=== PATIENT | female | born 1990 | race Caucasian/White ===

== ENCOUNTER 2018-08-21 21:46 | Emergency (ER) | payer OTHER, SELFPAY ==
[2018-08-21 21:50] VITALS: BP 139/90; PULSE 70; RESP 16; TEMP 36.5; O2SAT 100; BMI 30.1
--- NOTE | 2018-08-21 22:55 | DI.RAD.S_ITS ---
PROCEDURE: XR ACUTE ABDOMEN SERIES INDICATIONS: Abdominal pain TECHNIQUE: One view chest and two views of the abdomen were acquired. COMPARISON: None. FINDINGS: Surgical changes and devices: None. Chest: Lungs are clear. Heart size is normal. No pleural effusions. No pneumoperitoneum. Abdomen: Bowel gas pattern is normal. No suspicious calcifications. Visualized solid organ contours appear normal. Bones: No suspicious bony lesions. IMPRESSION: No acute disease process. If patient's symptoms persist or worsen, then CT scan of the abdomen and pelvis are considered for further evaluation. Dictated by: Eunice Gonzalez MD, PhD on 08/22/2018 at 8:16 Approved by: Eunice Gonzalez MD, PhD on 08/22/2018 at 8:16
[2018-08-21] MEDS: ONDANSETRON 4 MG ODT PREPACK 1 BOTTLE MISC (23:20)
[2018-08-21] MEDS: MAG HYDROX/ALUMINUM/SIMETH SUS 20 ML, LIDOCAINE VISCOUS 2% 15 ML PO (23:20)
--- NOTE | 2018-08-21 23:30 | PC.NURSE ---
Urine not sent for micro per doctor order.
[2018-08-22 00:18] VITALS: BP 110/72; PULSE 71; O2SAT 98
--- NOTE | 2018-08-22 02:32 | ED_ITS ---
HPI - Abdominal Pain General Chief Complaint: Abdominal Pain Stated Complaint: VOMITING BLOOD Time Seen by Provider: 08/21/18 22:04 Source: patient Mode of arrival: ambulatory Limitations: no limitations History of Present Illness HPI narrative: 27-year-old female, nonsmoker with 7 year history of vomiting presents with vomiting and a small streak of blood once earlier today. She is not dizzy nor weak or lightheaded. She admits to chronic pain with vomiting, today is her normal. She states she has had endoscopies in the past and denies any significant findings or existing diagnoses other than chronic vomiting. She denies any fever or chills nor any new dietary change. Onset (ago): year(s) Pain Consistency: constant Location: epigastric Severity: mild Quality: cramping and aching Radiation: none Migration to: no migration Relieving factors: nothing Exacerbating factors: nothing Associated symptoms: denies other symptoms Related Data Previous Rx's Medication Instructions Recorded ondansetron 4 mg PO TID-QID PRN #10 tab 08/22/18 Review of Systems Constitutional Denies chills, Denies fever(s), Denies lethargy and Denies weakness Eyes Denies change in vision, Denies eye discharge, Denies irritation and Denies loss of vision ENT Ears, Nose, Mouth, and Throat: Denies change in voice, Denies neck pain and Denies sore throat Cardiovascular Denies chest pain, Denies irregular heart rhythm, Denies lightheadedness, Denies palpitations, Denies dyspnea, Denies dyspnea on exertion and Denies orthopnea Respiratory Denies cough, Denies dyspnea, Denies dyspnea on exertion and Denies wheezing Gastrointestinal Gastrointestinal: Reports abdominal pain, Denies change in bowel habits, Denies diarrhea, Reports nausea and Reports vomiting Genitourinary Denies hematuria, Denies flank pain, Denies urinary incontinence and Denies urinary urgency Musculoskeletal Denies neck pain Integumentary/Breasts Denies pruritus, Denies erythema, Denies rash and Denies wounds Neurologic Denies confusion, Denies loss of vision and Denies weakness Psychiatric Denies anxiety, Denies confusion, Denies depression, Denies homicidal ideation and Denies suicidal ideation Endocrine Denies palpitations Hematologic/Lymphatic Denies easy bruising Allergic/Immunologic Denies wheezing Exam Narrative Exam Narrative: GENERAL: This is a well-nourished, well-developed patient, in mild distress. HEAD: Atraumatic. Normocephalic. No temporal or scalp tenderness. EYES: Pupils equal round and reactive. Extraocular motions intact. No scleral icterus. No injection or drainage. ENT: Nose without bleeding, purulent drainage or septal hematoma. Throat without erythema, tonsillar hypertrophy or exudate. Uvula midline. Airway patent. NECK: Trachea midline. No JVD or lymphadenopathy. Supple, nontender, no meningeal signs. CARDIOVASCULAR: Regular rate and rhythm without murmurs, gallops, or rubs. RESPIRATORY: Clear to auscultation. Breath sounds equal bilaterally. No wheezes , rales, or rhonchi. GASTROINTESTINAL: Abdomen soft, mild epigastric tenderness, nondistended. No hepato-splenomegaly, or palpable masses. No guarding. EXTREMITIES: No clubbing, cyanosis, or edema. No joint tenderness, effusion, or edema noted. BACK: Nontender without deformity or crepitance. No flank tenderness. NEURO: AOx3. SKIN: No rash or erythema. Initial Vital Signs Initial Vital Signs: Vital Signs Temperature 97.7 F 08/21/18 21:50 Pulse Rate 70 08/21/18 21:50 Respiratory Rate 16 08/21/18 21:50 Blood Pressure 139/90 08/21/18 21:50 Pulse Oximetry 100 08/21/18 21:50 Course Orders Ordered: ED Orders 08/21/18 22:55 XR acute abdomen series Stat Discontinued Medications Al Hydrox/Mg Hydrox/Simethicone 20 ml/ Lidocaine HCl 15 ml 0 ml PO NOW ONE Stop: 08/21/18 22:56 Last Admin: 08/21/18 23:20 Dose: 30 ml Ondansetron HCl (Zofran Odt Prepack) 1 bottle MISC SEEINSTR ONE Stop: 08/21/18 22:56 Last Admin: 08/21/18 23:20 Dose: 1 bottle Reevaluation(s) Reevaluation #1: near complete resolution of symptoms after above stated therapies Vital Signs - 8 hr 08/21/18 21:50 08/22/18 00:18 Temperature 97.7 F Pulse Rate 70 71 Respiratory Rate 16 Blood Pressure 139/90 110/72 Pulse Oximetry 100 98 MDM - Abdominal Pain Differential Diagnosis Differential diagnosis: Likely abdominal pain, pancreatitis and small bowel obstruction Lab Data Point of care testing: Point of Care Testing Test Results Negative Urine Dip Bedside Urine Glucose Negative Bedside Urine Bilirubin - Negative Bedside Urine Ketone ++ 40 Urine Specific [place] 1.015 Bedside Urine Occult Blood - Negative Bedside Urine pH 7.0 Bedside Urine Protein - Negative Bedside Urine Nitrite - Negative Bedside Urine Leukocytes - Negative Esterase Imaging Data Abdominal x-ray: Radiologist's impression: NAP Discharge Plan Departure Patient Disposition: Home Clinical Impression: Vomiting Discharge Date/Time: 08/22/18 00:18 Interventions: ED Discharge Assessment Last Done: 08/22/18 00:18 Instructions: DI for Vomiting -- Adult Activity Restrictions/Additional Instructions: 1. Drink plenty of fluids with frequent small sips. 2. For the next 24 hours a clear liquid diet is advised. After that please employ a brat diet which would include bananas, rice, apples, toast. 3. Please take medications as directed. 4. Please follow-up with your doctor in the next 1-2 days. Call the office for an appointment. 5. Please return to the emergency Department for any worsening or persistent symptoms, such as increasing pain or fever. Prescriptions: New ondansetron 4 mg tablet,disintegrating 4 mg PO TID-QID PRN (Reason: nausea and vomiting) Qty: 10 RF: 0 Referrals: Varinder Houston MD [Non-Staff] -
== END 2018-08-22 00:18 | disposition home or self-care (01) ==
PROVIDERS: Emergency Provider Emergency Medicine
DX: R11.10 Vomiting, unspecified (principal)
CPT/HCPCS: 74022; 81003; 81025; 99283; 99284

== ENCOUNTER 2019-02-27 14:21 | Emergency (ER) | payer OTHER, SELFPAY ==
[2019-02-27 14:25] VITALS: BP 129/84; PULSE 94; RESP 20; TEMP 36.8; O2SAT 99
--- NOTE | 2019-02-27 15:31 | DI.US.S_ITS ---
PROCEDURE: US PELVIC COMPLETE INDICATIONS: PELVIC PAIN, HISTORY OF DERMOID TECHNIQUE: Real-time scanning was performed of the pelvic organs, with image documentation. Additional endovaginal scanning was necessary due to incomplete visualization of the adnexal and endometrial structures by transabdominal scanning. COMPARISON: [facility], CR, XR ACUTE ABDOMEN SERIES, 08/21/2018, 22:58. FINDINGS: Transabdominal scanning: Limited scanning through the kidneys shows no hydronephrosis. No pathologic free abdominal or pelvic fluid. Endovaginal scanning: Uterus: Uterus is normal in size at 4.6 x 5.2 x 9.3 cm. The endometrium measures 6.3 mm in combined thickness and mildly heterogeneous. Ovaries: The eighth right ovary measures 1.8 x 2.5 x 3.2 cm and the left measures 3.0 x 5.3 x 5.3 cm. A left-sided apparent dermoid measures up to 5.1 x 3.3 x 5.0 cm and a left ovarian cyst is associated measuring up to 4.6 x 2.7 x 4.7 cm. IMPRESSION: Complex cystic and solid structure in the left ovary is consistent with the clinical report of dermoid from the past but the exact cystic and solid mass on the left is indeterminate in origin by sonographic appearance alone. Gynecological surgical consultation is recommended. Dictated by: Migel Rowell M.D. on 02/27/2019 at 16:36 Approved by: Migel Rowell M.D. on 02/27/2019 at 16:40
[2019-02-27 16:33] LABS: Add Manual Diff / Slide Review NO; Basophils Absolute Auto 0 /uL (0-100); Basophils Percent Auto 0.4 % (0-2); Eosinophils Absolute Auto 200 /uL (0-450); Eosinophils Percent Auto 1.7 % (2-4); Hematocrit 39.2 % (36-46); Hemoglobin 13.3 g/dL (12.0-16.0); Lymphocytes Absolute Auto 2600 /uL (1100-4500); Lymphocytes Percent Auto 28.5 % (25-40); Mean Corpuscular Hemoglobin 31.2 PG (26-34); Mean Corpuscular Volume 91.8 fL (80-100); Monocytes Absolute Auto 600 /uL (0-900); Monocytes Percent Auto 6.8 % (3-14); Neutrophils Absolute Auto 5800 /uL (1500-7000); Neutrophils Percent Auto 62.6 % (50-75); Platelet Count 323 X10^3/uL (150-400); Red Blood Cell Count 4.27 X10^6/uL (4.0-5.2); Red Cell Distribution Width 12.6 % (11.6-14.8); White Blood Cell Count 9.3 X10^3/uL (4.5-11.0)
[2019-02-27 16:45] LABS: Alanine Aminotransferase 25 IU/L (9-52); Albumin 4.1 g/dL (3.5-5.0); Albumin Globulin Ratio 1.5 (1.0-2.8); Alkaline Phosphatase 51 U/L (38-126); Amylase 93 U/L (30-110); Aspartate Aminotransferase 20 IU/L (14-36); BUN Creatinine Ratio 12.9 (6-22); Bilirubin Total 0.3 mg/dL (0.2-1.3); Blood Urea Nitrogen 9 mg/dL (7-17); Calcium 9.4 mg/dL (8.4-10.2); Carbon Dioxide 27 mmol/L (22-32); Chloride 104 mmol/L (98-107); Estimated Glomerular Filt Rate > 60.0 mL/min (>60); Globulin 2.8 g/dL (1.7-4.1); Glucose 95 mg/dL (70-100); HEMOLYSIS < 15 (0-50); Lipase 42 U/L (23-300); Potassium 4.1 mmol/L (3.4-5.1); Sodium 141 mmol/L (137-145); Total Protein 6.9 g/dL (6.3-8.2)
[2019-02-27 17:10] VITALS: BP 110/66; PULSE 80; RESP 16; O2SAT 100
--- NOTE | 2019-02-27 18:00 | PC.NURSE ---
assist with pelvic.
[2019-02-27 18:01] VITALS: BP 125/76; PULSE 62; RESP 20; O2SAT 98
--- NOTE | 2019-02-27 19:13 | ED.FEMALEGU ---
HPI - Female Genitourinary <CHERIE Martin - Last Filed: 02/27/19 19:17> General Chief complaint: Urogenital-Female Stated complaint: Prolapsed uterus sent by doctor Time Seen by Provider: 02/27/19 14:51 Source: patient Mode of arrival: ambulatory Limitations: no limitations History of Present Illness HPI Narrative: The patient is a 28-year-old female nonsmoker with history of insomnia who presents with a chief complaint of urinary urgency, concern of uterine prolapse. She states she has been concerned about this for months. Last week she had difficulty urinating, and felt as though her bladder is not empty. She denies any dysuria urgency or frequency at this time. She thinks that might be related to her menstrual cup. She denies any fevers flank pain abdominal pain. She does complain of suprapubic pain, with history of a large ovarian dermoid cyst, she states that she was told that might have to be removed. She states the pain was 10/10 this morning and she was crying so bad. She denies any fevers. She denies any vaginal discharge, vaginal bleeding or concern of sexually transmitted infection. Related Data Home Medications Medication Instructions Recorded Confirmed citalopram 10 mg PO QPM 02/27/19 02/27/19 hydroxyzine HCl 25 mg PO QID 02/27/19 02/27/19 magnesium 1 tab PO QPM 02/27/19 02/27/19 multivitamin with minerals 1 tab PO QPM 02/27/19 02/27/19 [Hair,Skin and Nails] ondansetron 4 mg PO PRN PRN 02/27/19 02/27/19 rabeprazole 20 mg PO BID 02/27/19 02/27/19 zolmitriptan 2.5 mg PO PRN PRN 02/27/19 02/27/19 Allergies Allergy/AdvReac Type Severity Reaction Status Date / Time No Known Drug Allergies Allergy Verified 02/27/19 14:31 Review of Systems <CHERIE Martin - Last Filed: 02/27/19 19:17> Review of Systems GENERAL: Denies chills, fatigue, malaise, fever, sweats. HEENT: Denies sinus pain, ear pain, sore throat, difficulty swallowing, dizziness. RESPIRATORY: Denies dyspnea, cough, wheezing, hemoptysis, sputum. CARDIOVASCULAR: Denies chest pain, palpitations, orthopnea, edema, GASTROINTESTINAL: Denies nausea, vomiting, abdominal pain, diarrhea, constipation, melena. : See HPI MUSCULOSKELETAL: denies weakness, joint pain, or bony pain SKIN: Denies rash, skin lesions, or other NEUROLOGIC: Denies weakness, headache, numbness, change in speech, confusion, seizures, incoordination. PSYCHIATRIC: No concerning psychosocial issues. 12 point review of systems is negative except for those stated above PFSH <CHERIE Martin - Last Filed: 02/27/19 19:17> Medical History (Updated 02/27/19 @ 19:15 by CHERIE Martin) Dermoid cyst (Acute) Exam <CHERIE Martin - Last Filed: 02/27/19 19:17> Narrative Exam Narrative: GENERAL: This is a well-nourished, well-developed patient, no acute distress HEAD: Atraumatic. Normocephalic. No temporal or scalp tenderness. EYES: Pupils equal round and reactive. Extraocular motions intact. No scleral icterus. No injection or drainage. ENT: Nose without bleeding, purulent drainage or septal hematoma. Throat without erythema, tonsillar hypertrophy or exudate. Uvula midline. Airway patent. NECK: Trachea midline. No JVD or lymphadenopathy. Supple, nontender, no meningeal signs. CARDIOVASCULAR: Regular rate and rhythm without murmurs, gallops, or rubs. RESPIRATORY: Clear to auscultation. Breath sounds equal bilaterally. No wheezes, rales, or rhonchi. GASTROINTESTINAL: Abdomen soft, diffuse suprapubic tenderness to palpation, nondistended. No hepato-splenomegaly, or palpable masses. No guarding. EXTREMITIES: No clubbing, cyanosis, or edema. No joint tenderness, effusion, or edema noted. BACK: Nontender without deformity or crepitance. No flank tenderness. NEURO: AOx3. SKIN: No rash or erythema. : Pelvic done with casandra RN at bedside. No obvious prolapse on exam. No obvious rashes. No discharge. No cervical motion tenderness. Initial Vital Signs Initial Vital Signs: Vital Signs Temperature 98.2 F 02/27/19 14:25 Pulse Rate 94 H 02/27/19 14:25 Respiratory Rate 20 02/27/19 14:25 Blood Pressure 129/84 02/27/19 14:25 Pulse Oximetry 99 02/27/19 14:25 <Alison Power DO - Last Filed: 02/28/19 07:41> Initial Vital Signs Initial Vital Signs: Vital Signs Temperature 98.2 F 02/27/19 14:25 Pulse Rate 94 H 02/27/19 14:25 Respiratory Rate 20 02/27/19 14:25 Blood Pressure 129/84 02/27/19 14:25 Pulse Oximetry 99 02/27/19 14:25 Course <CHERIE Martin - Last Filed: 02/27/19 19:17> Orders Ordered: ED Orders 02/27/19 15:31 US pelvic complete Stat 02/27/19 16:23 Amylase Stat Complete Blood Count AUTO DIFF Stat Comprehensive Metabolic Panel Stat Lipase Stat Vital Signs - 8 hr 02/27/19 14:25 02/27/19 17:10 02/27/19 18:01 Temperature 98.2 F Pulse Rate 94 H 80 62 Respiratory Rate 20 16 20 Blood Pressure 129/84 Blood Pressure [Right Arm] 110/66 125/76 Pulse Oximetry 99 100 98 <Alison Power DO - Last Filed: 02/28/19 07:41> Orders Ordered: ED Orders 02/27/19 15:31 US pelvic complete Stat 02/27/19 16:23 Amylase Stat Complete Blood Count AUTO DIFF Stat Comprehensive Metabolic Panel Stat Lipase Stat Vital Signs - 8 hr 02/27/19 14:25 02/27/19 17:10 02/27/19 18:01 Temperature 98.2 F Pulse Rate 94 H 80 62 Respiratory Rate 20 16 20 Blood Pressure 129/84 Blood Pressure [Right Arm] 110/66 125/76 Pulse Oximetry 99 100 98 MDM - Female Genitourinary <CHERIE Martin - Last Filed: 02/27/19 19:17> Lab Data Result diagrams: 02/27/19 16:23 02/27/19 16:23 Lab Results 02/27/19 02/27/19 Range/Units 16:23 16:23 WBC 9.3 (4.5-11.0) X10^3/uL RBC 4.27 (4.0-5.2) X10^6/uL Hgb 13.3 (12.0-16.0) g/dL Hct 39.2 (36-46) % MCV 91.8 (80-100) fL MCH 31.2 (26-34) PG MCHC 34.0 (30-36) % RDW 12.6 (11.6-14.8) % Plt Count 323 (150-400) X10^3/uL Neut % (Auto) 62.6 (50-75) % Lymph % (Auto) 28.5 (25-40) % Bennett % (Auto) 6.8 (3-14) % Eos % (Auto) 1.7 L (2-4) % Baso % (Auto) 0.4 (0-2) % Neut # (Auto) 5800 (8766-1839) /uL Lymph # (Auto) 2600 (8950-7628) /uL Bennett # (Auto) 600 (0-900) /uL Eos # (Auto) 200 (0-450) /uL Baso # (Auto) 0 (0-100) /uL Sodium 141 (137-145) mmol/L Potassium 4.1 (3.4-5.1) mmol/L Chloride 104 (98-107) mmol/L Carbon Dioxide 27 (22-32) mmol/L BUN 9 (7-17) mg/dL Creatinine 0.70 (0.52-1.04) mg/dL Estimated GFR > 60.0 (>60) mL/min BUN/Creatinine Ratio 12.9 (6-22) Glucose 95 (70-100) mg/dL Calcium 9.4 (8.4-10.2) mg/dL Total Bilirubin 0.3 (0.2-1.3) mg/dL AST 20 (14-36) IU/L ALT 25 (9-52) IU/L Alkaline Phosphatase 51 (38-126) U/L Total Protein 6.9 (6.3-8.2) g/dL Albumin 4.1 (3.5-5.0) g/dL Globulin 2.8 (1.7-4.1) g/dL Albumin/Globulin Ratio 1.5 (1.0-2.8) Amylase 93 (30-110) U/L Lipase 42 (23-300) U/L Point of Care Testing Test Results Negative Urine Dip Bedside Urine Glucose Negative Bedside Urine Bilirubin - Negative Bedside Urine Ketone - Negative Urine Specific [place] 1.010 Bedside Urine Occult Blood - Negative Bedside Urine pH 6.5 Bedside Urine Protein - Negative Bedside Urine Urobilinogen - Negative Bedside Urine Nitrite - Negative Bedside Urine Leukocytes - Negative Esterase Imaging Data Pelvic ultrasound: Radiologist's impression: EVELIN MORAN 28 F [address] [address] Ultrasound Report Signed Patient: EVELIN MORAN [facility]#: [id number] : 1990Acct:[id number] Age/Sex: 28 FDate of Service: 02/27/19 Loc: ED Accession Number: [id number] Procedure: US pelvic complete Ordering Provider: Alison Temple- PROCEDURE: US PELVIC COMPLETE INDICATIONS: PELVIC PAIN, HISTORY OF DERMOID TECHNIQUE: Real-time scanning was performed of the pelvic organs, with image documentation. Additional endovaginal scanning was necessary due to incomplete visualization of the adnexal and endometrial structures by transabdominal scanning. COMPARISON: [facility], CR, XR ACUTE ABDOMEN SERIES, 08/21/2018, 22:58. FINDINGS: Transabdominal scanning: Limited scanning through the kidneys shows no hydronephrosis. No pathologic free abdominal or pelvic fluid. Endovaginal scanning: Uterus: Uterus is normal in size at 4.6 x 5.2 x 9.3 cm. The endometrium measures 6.3 mm in combined thickness and mildly heterogeneous. Ovaries: The eighth right ovary measures 1.8 x 2.5 x 3.2 cm and the left measures 3.0 x 5.3 x 5.3 cm. A left-sided apparent dermoid measures up to 5.1 x 3.3 x 5.0 cm and a left ovarian cyst is associated measuring up to 4.6 x 2.7 x 4.7 cm. IMPRESSION: Complex cystic and solid structure in the left ovary is consistent with the clinical report of dermoid from the past but the exact cystic and solid mass on the left is indeterminate in origin by sonographic appearance alone. Gynecological surgical consultation is recommended. Dictated by: Migel Rowell M.D. on 02/27/2019 at 16:36 Approved by: Migel Rowell M.D. on 02/27/2019 at 16:40 [facility] Narrative Medical decision making narrative: The patient is a 28-year-old female who presents with a chief complaint of possible uterine prolapse after giving to her 3rd child. She is 3 years . I did get a pelvic ultrasound given her history of a large dermoid cyst, which correlates with the ultrasound findings. She has no evidence of torsion. She does not have an acute abdomen exam or cervical motion tenderness on exam. Her abdominal lab work came back with no acute findings. I discussed at length follow up with PCP. She is not have any urinary tract infection. Discussed return precautions the emergency department including severe abdominal pain, abdominal with fever inability keep down fluids etc. No questions or concerns upon discharge. <Alison Power, DO - Last Filed: 02/28/19 07:41> Lab Data Lab Results 02/27/19 02/27/19 Range/Units 16:23 16:23 WBC 9.3 (4.5-11.0) X10^3/uL RBC 4.27 (4.0-5.2) X10^6/uL Hgb 13.3 (12.0-16.0) g/dL Hct 39.2 (36-46) % MCV 91.8 (80-100) fL MCH 31.2 (26-34) PG MCHC 34.0 (30-36) % RDW 12.6 (11.6-14.8) % Plt Count 323 (150-400) X10^3/uL Neut % (Auto) 62.6 (50-75) % Lymph % (Auto) 28.5 (25-40) % Bennett % (Auto) 6.8 (3-14) % Eos % (Auto) 1.7 L (2-4) % Baso % (Auto) 0.4 (0-2) % Neut # (Auto) 5800 (9913-0279) /uL Lymph # (Auto) 2600 (6252-7898) /uL Bennett # (Auto) 600 (0-900) /uL Eos # (Auto) 200 (0-450) /uL Baso # (Auto) 0 (0-100) /uL Sodium 141 (137-145) mmol/L Potassium 4.1 (3.4-5.1) mmol/L Chloride 104 (98-107) mmol/L Carbon Dioxide 27 (22-32) mmol/L BUN 9 (7-17) mg/dL Creatinine 0.70 (0.52-1.04) mg/dL Estimated GFR > 60.0 (>60) mL/min BUN/Creatinine Ratio 12.9 (6-22) Glucose 95 (70-100) mg/dL Calcium 9.4 (8.4-10.2) mg/dL Total Bilirubin 0.3 (0.2-1.3) mg/dL AST 20 (14-36) IU/L ALT 25 (9-52) IU/L Alkaline Phosphatase 51 (38-126) U/L Total Protein 6.9 (6.3-8.2) g/dL Albumin 4.1 (3.5-5.0) g/dL Globulin 2.8 (1.7-4.1) g/dL Albumin/Globulin Ratio 1.5 (1.0-2.8) Amylase 93 (30-110) U/L Lipase 42 (23-300) U/L Point of Care Testing Test Results Negative Urine Dip Bedside Urine Glucose Negative Bedside Urine Bilirubin - Negative Bedside Urine Ketone - Negative Urine Specific [place] 1.010 Bedside Urine Occult Blood - Negative Bedside Urine pH 6.5 Bedside Urine Protein - Negative Bedside Urine Urobilinogen - Negative Bedside Urine Nitrite - Negative Bedside Urine Leukocytes - Negative Esterase Discharge Plan Departure Patient Disposition: Home Clinical Impression: Abdominal pain Qualifiers: Abdominal location: lower abdomen, unspecified Qualified Code(s): R10.30 - Lower abdominal pain, unspecified Ovarian cyst Qualifiers: Laterality: left Qualified Code(s): N83.202 - Unspecified ovarian cyst, left side Discharge Date/Time: 02/27/19 18:19 Interventions: ED Discharge Assessment Last Done: 02/27/19 18:18 Instructions: Acute Abdominal Pain, DI for Ovarian Cyst Activity Restrictions/Additional Instructions: Please follow up with primary care provider. Please come back to emergency department for any acute concerns such as fever with abdominal pain, etc. Your ultrasound shows a cystic structure in your left ovary. Otherwise your lab work came back negative. Prescriptions: No Action citalopram 10 mg tablet 10 mg PO QPM RF: 0 hydroxyzine HCl 25 mg tablet 25 mg PO QID RF: 0 rabeprazole 20 mg tablet,delayed release (DR/EC) 20 mg PO BID RF: 0 zolmitriptan 2.5 mg tablet,disintegrating 2.5 mg PO PRN PRN (Reason: Migraine Headache) RF: 0 multivitamin with minerals [Hair,Skin and Nails] Tablet 1 tab PO QPM RF: 0 ondansetron 4 mg tablet,disintegrating 4 mg PO PRN PRN (Reason: Nausea) RF: 0 magnesium 1 tab PO QPM RF: 0 Referrals: [facility] [Outside] <Alison Power DO - Last Filed: 02/28/19 07:41> Cosign ED Attending Cosignature Attestation: I was immediately available in the department for consultation. This documentation has been reviewed and I agree with assessment and plan. Supervised by Alison Power DO
--- NOTE | 2019-02-27 19:17 | ED_ITS ---
HPI - Female Genitourinary <CHERIE Martin - Last Filed: 02/27/19 19:17> General Chief complaint: Urogenital-Female Stated complaint: Prolapsed uterus sent by doctor Time Seen by Provider: 02/27/19 14:51 Source: patient Mode of arrival: ambulatory Limitations: no limitations History of Present Illness HPI Narrative: The patient is a 28-year-old female nonsmoker with history of insomnia who presents with a chief complaint of urinary urgency, concern of uterine prolapse. She states she has been concerned about this for months. Last week she had difficulty urinating, and felt as though her bladder is not empty. She denies any dysuria urgency or frequency at this time. She thinks that might be related to her menstrual cup. She denies any fevers flank pain abdominal pain. She does complain of suprapubic pain, with history of a large ovarian dermoid cyst, she states that she was told that might have to be removed. She states the pain was 10/10 this morning and she was crying so bad. She denies any fevers. She denies any vaginal discharge, vaginal bleeding or concern of sexually transmitted infection. Related Data Home Medications Medication Instructions Recorded Confirmed citalopram 10 mg PO QPM 02/27/19 02/27/19 hydroxyzine HCl 25 mg PO QID 02/27/19 02/27/19 magnesium 1 tab PO QPM 02/27/19 02/27/19 multivitamin with minerals 1 tab PO QPM 02/27/19 02/27/19 [Hair,Skin and Nails] ondansetron 4 mg PO PRN PRN 02/27/19 02/27/19 rabeprazole 20 mg PO BID 02/27/19 02/27/19 zolmitriptan 2.5 mg PO PRN PRN 02/27/19 02/27/19 Allergies Allergy/AdvReac Type Severity Reaction Status Date / Time No Known Drug Allergies Allergy Verified 02/27/19 14:31 Review of Systems <CHERIE Martin - Last Filed: 02/27/19 19:17> Review of Systems GENERAL: Denies chills, fatigue, malaise, fever, sweats. HEENT: Denies sinus pain, ear pain, sore throat, difficulty swallowing, dizziness. RESPIRATORY: Denies dyspnea, cough, wheezing, hemoptysis, sputum. CARDIOVASCULAR: Denies chest pain, palpitations, orthopnea, edema, GASTROINTESTINAL: Denies nausea, vomiting, abdominal pain, diarrhea, constipation, melena. : See HPI MUSCULOSKELETAL: denies weakness, joint pain, or bony pain SKIN: Denies rash, skin lesions, or other NEUROLOGIC: Denies weakness, headache, numbness, change in speech, confusion, seizures, incoordination. PSYCHIATRIC: No concerning psychosocial issues. 12 point review of systems is negative except for those stated above PFSH <CHERIE Martin - Last Filed: 02/27/19 19:17> Medical History (Updated 02/27/19 @ 19:15 by CHERIE Martin) Dermoid cyst (Acute) Exam <CHERIE Martin - Last Filed: 02/27/19 19:17> Narrative Exam Narrative: GENERAL: This is a well-nourished, well-developed patient, no acute distress HEAD: Atraumatic. Normocephalic. No temporal or scalp tenderness. EYES: Pupils equal round and reactive. Extraocular motions intact. No scleral icterus. No injection or drainage. ENT: Nose without bleeding, purulent drainage or septal hematoma. Throat without erythema, tonsillar hypertrophy or exudate. Uvula midline. Airway patent. NECK: Trachea midline. No JVD or lymphadenopathy. Supple, nontender, no meningeal signs. CARDIOVASCULAR: Regular rate and rhythm without murmurs, gallops, or rubs. RESPIRATORY: Clear to auscultation. Breath sounds equal bilaterally. No wheezes, rales, or rhonchi. GASTROINTESTINAL: Abdomen soft, diffuse suprapubic tenderness to palpation, nondistended. No hepato-splenomegaly, or palpable masses. No guarding. EXTREMITIES: No clubbing, cyanosis, or edema. No joint tenderness, effusion, or edema noted. BACK: Nontender without deformity or crepitance. No flank tenderness. NEURO: AOx3. SKIN: No rash or erythema. : Pelvic done with casandra RN at bedside. No obvious prolapse on exam. No obvious rashes. No discharge. No cervical motion tenderness. Initial Vital Signs Initial Vital Signs: Vital Signs Temperature 98.2 F 02/27/19 14:25 Pulse Rate 94 H 02/27/19 14:25 Respiratory Rate 20 02/27/19 14:25 Blood Pressure 129/84 02/27/19 14:25 Pulse Oximetry 99 02/27/19 14:25 <Alison Power DO - Last Filed: 02/28/19 07:41> Initial Vital Signs Initial Vital Signs: Vital Signs Temperature 98.2 F 02/27/19 14:25 Pulse Rate 94 H 02/27/19 14:25 Respiratory Rate 20 02/27/19 14:25 Blood Pressure 129/84 02/27/19 14:25 Pulse Oximetry 99 02/27/19 14:25 Course <CHERIE Martin - Last Filed: 02/27/19 19:17> Orders Ordered: ED Orders 02/27/19 15:31 US pelvic complete Stat 02/27/19 16:23 Amylase Stat Complete Blood Count AUTO DIFF Stat Comprehensive Metabolic Panel Stat Lipase Stat Vital Signs - 8 hr 02/27/19 14:25 02/27/19 17:10 02/27/19 18:01 Temperature 98.2 F Pulse Rate 94 H 80 62 Respiratory Rate 20 16 20 Blood Pressure 129/84 Blood Pressure [Right Arm] 110/66 125/76 Pulse Oximetry 99 100 98 <Alison Power DO - Last Filed: 02/28/19 07:41> Orders Ordered: ED Orders 02/27/19 15:31 US pelvic complete Stat 02/27/19 16:23 Amylase Stat Complete Blood Count AUTO DIFF Stat Comprehensive Metabolic Panel Stat Lipase Stat Vital Signs - 8 hr 02/27/19 14:25 02/27/19 17:10 02/27/19 18:01 Temperature 98.2 F Pulse Rate 94 H 80 62 Respiratory Rate 20 16 20 Blood Pressure 129/84 Blood Pressure [Right Arm] 110/66 125/76 Pulse Oximetry 99 100 98 MDM - Female Genitourinary <CHERIE Martin - Last Filed: 02/27/19 19:17> Lab Data Result diagrams: 02/27/19 16:23 02/27/19 16:23 Lab Results 02/27/19 02/27/19 Range/Units 16:23 16:23 WBC 9.3 (4.5-11.0) X10^3/uL RBC 4.27 (4.0-5.2) X10^6/uL Hgb 13.3 (12.0-16.0) g/dL Hct 39.2 (36-46) % MCV 91.8 (80-100) fL MCH 31.2 (26-34) PG MCHC 34.0 (30-36) % RDW 12.6 (11.6-14.8) % Plt Count 323 (150-400) X10^3/uL Neut % (Auto) 62.6 (50-75) % Lymph % (Auto) 28.5 (25-40) % [place] % (Auto) 6.8 (3-14) % Eos % (Auto) 1.7 L (2-4) % Baso % (Auto) 0.4 (0-2) % Neut # (Auto) 5800 (4895-8367) /uL Lymph # (Auto) 2600 (1141-4030) /uL [place] # (Auto) 600 (0-900) /uL Eos # (Auto) 200 (0-450) /uL Baso # (Auto) 0 (0-100) /uL Sodium 141 (137-145) mmol/L Potassium 4.1 (3.4-5.1) mmol/L Chloride 104 (98-107) mmol/L Carbon Dioxide 27 (22-32) mmol/L BUN 9 (7-17) mg/dL Creatinine 0.70 (0.52-1.04) mg/dL Estimated GFR > 60.0 (>60) mL/min BUN/Creatinine Ratio 12.9 (6-22) Glucose 95 (70-100) mg/dL Calcium 9.4 (8.4-10.2) mg/dL Total Bilirubin 0.3 (0.2-1.3) mg/dL AST 20 (14-36) IU/L ALT 25 (9-52) IU/L Alkaline Phosphatase 51 (38-126) U/L Total Protein 6.9 (6.3-8.2) g/dL Albumin 4.1 (3.5-5.0) g/dL Globulin 2.8 (1.7-4.1) g/dL Albumin/Globulin Ratio 1.5 (1.0-2.8) Amylase 93 (30-110) U/L Lipase 42 (23-300) U/L Point of Care Testing Test Results Negative Urine Dip Bedside Urine Glucose Negative Bedside Urine Bilirubin - Negative Bedside Urine Ketone - Negative Urine Specific [place] 1.010 Bedside Urine Occult Blood - Negative Bedside Urine pH 6.5 Bedside Urine Protein - Negative Bedside Urine Urobilinogen - Negative Bedside Urine Nitrite - Negative Bedside Urine Leukocytes - Negative Esterase Imaging Data Pelvic ultrasound: Radiologist's impression: EVELIN MORAN 28 F [address] [address] Ultrasound Report Signed Patient: EVELIN MORAN [facility]#: [id number] : 1990Acct:[id number] Age/Sex: 28 FDate of Service: 02/27/19 Loc: ED Accession Number: [id number] Procedure: US pelvic complete Ordering Provider: Alison Temple- PROCEDURE: US PELVIC COMPLETE INDICATIONS: PELVIC PAIN, HISTORY OF DERMOID TECHNIQUE: Real-time scanning was performed of the pelvic organs, with image documentation. Additional endovaginal scanning was necessary due to incomplete visualization of the adnexal and endometrial structures by transabdominal scanning. COMPARISON: [facility], CR, XR ACUTE ABDOMEN SERIES, 08/21/2018, 22:58. FINDINGS: Transabdominal scanning: Limited scanning through the kidneys shows no hydronephrosis. No pathologic free abdominal or pelvic fluid. Endovaginal scanning: Uterus: Uterus is normal in size at 4.6 x 5.2 x 9.3 cm. The endometrium measures 6.3 mm in combined thickness and mildly heterogeneous. Ovaries: The eighth right ovary measures 1.8 x 2.5 x 3.2 cm and the left measures 3.0 x 5.3 x 5.3 cm. A left-sided apparent dermoid measures up to 5.1 x 3.3 x 5.0 cm and a left ovarian cyst is associated measuring up to 4.6 x 2.7 x 4.7 cm. IMPRESSION: Complex cystic and solid structure in the left ovary is consistent with the clinical report of dermoid from the past but the exact cystic and solid mass on the left is indeterminate in origin by sonographic appearance alone. Gynecological surgical consultation is recommended. Dictated by: Migel Rowell M.D. on 02/27/2019 at 16:36 Approved by: Migel Rowell M.D. on 02/27/2019 at 16:40 [facility] Narrative Medical decision making narrative: The patient is a 28-year-old female who presents with a chief complaint of possible uterine prolapse after giving to her 3rd child. She is 3 years . I did get a pelvic ultrasound given her history of a large dermoid cyst, which correlates with the ultrasound findings. She has no evidence of torsion. She does not have an acute abdomen exam or cervical motion tenderness on exam. Her abdominal lab work came back with no acute findings. I discussed at length follow up with PCP. She is not have any urinary tract infection. Discussed return precautions the emergency department including severe abdominal pain, abdominal with fever inability keep down fluids etc. No questions or concerns upon discharge. <Alison Power, DO - Last Filed: 02/28/19 07:41> Lab Data Lab Results 02/27/19 02/27/19 Range/Units 16:23 16:23 WBC 9.3 (4.5-11.0) X10^3/uL RBC 4.27 (4.0-5.2) X10^6/uL Hgb 13.3 (12.0-16.0) g/dL Hct 39.2 (36-46) % MCV 91.8 (80-100) fL MCH 31.2 (26-34) PG MCHC 34.0 (30-36) % RDW 12.6 (11.6-14.8) % Plt Count 323 (150-400) X10^3/uL Neut % (Auto) 62.6 (50-75) % Lymph % (Auto) 28.5 (25-40) % [place] % (Auto) 6.8 (3-14) % Eos % (Auto) 1.7 L (2-4) % Baso % (Auto) 0.4 (0-2) % Neut # (Auto) 5800 (1383-0363) /uL Lymph # (Auto) 2600 (5572-4300) /uL [place] # (Auto) 600 (0-900) /uL Eos # (Auto) 200 (0-450) /uL Baso # (Auto) 0 (0-100) /uL Sodium 141 (137-145) mmol/L Potassium 4.1 (3.4-5.1) mmol/L Chloride 104 (98-107) mmol/L Carbon Dioxide 27 (22-32) mmol/L BUN 9 (7-17) mg/dL Creatinine 0.70 (0.52-1.04) mg/dL Estimated GFR > 60.0 (>60) mL/min BUN/Creatinine Ratio 12.9 (6-22) Glucose 95 (70-100) mg/dL Calcium 9.4 (8.4-10.2) mg/dL Total Bilirubin 0.3 (0.2-1.3) mg/dL AST 20 (14-36) IU/L ALT 25 (9-52) IU/L Alkaline Phosphatase 51 (38-126) U/L Total Protein 6.9 (6.3-8.2) g/dL Albumin 4.1 (3.5-5.0) g/dL Globulin 2.8 (1.7-4.1) g/dL Albumin/Globulin Ratio 1.5 (1.0-2.8) Amylase 93 (30-110) U/L Lipase 42 (23-300) U/L Point of Care Testing Test Results Negative Urine Dip Bedside Urine Glucose Negative Bedside Urine Bilirubin - Negative Bedside Urine Ketone - Negative Urine Specific [place] 1.010 Bedside Urine Occult Blood - Negative Bedside Urine pH 6.5 Bedside Urine Protein - Negative Bedside Urine Urobilinogen - Negative Bedside Urine Nitrite - Negative Bedside Urine Leukocytes - Negative Esterase Discharge Plan Departure Patient Disposition: Home Clinical Impression: Abdominal pain Qualifiers: Abdominal location: lower abdomen, unspecified Qualified Code(s): R10.30 - Lower abdominal pain, unspecified Ovarian cyst Qualifiers: Laterality: left Qualified Code(s): N83.202 - Unspecified ovarian cyst, left side Discharge Date/Time: 02/27/19 18:19 Interventions: ED Discharge Assessment Last Done: 02/27/19 18:18 Instructions: Acute Abdominal Pain, DI for Ovarian Cyst Activity Restrictions/Additional Instructions: Please follow up with primary care provider. Please come back to emergency department for any acute concerns such as fever with abdominal pain, etc. Your ultrasound shows a cystic structure in your left ovary. Otherwise your lab work came back negative. Prescriptions: No Action citalopram 10 mg tablet 10 mg PO QPM RF: 0 hydroxyzine HCl 25 mg tablet 25 mg PO QID RF: 0 rabeprazole 20 mg tablet,delayed release (DR/EC) 20 mg PO BID RF: 0 zolmitriptan 2.5 mg tablet,disintegrating 2.5 mg PO PRN PRN (Reason: Migraine Headache) RF: 0 multivitamin with minerals [Hair,Skin and Nails] Tablet 1 tab PO QPM RF: 0 ondansetron 4 mg tablet,disintegrating 4 mg PO PRN PRN (Reason: Nausea) RF: 0 magnesium 1 tab PO QPM RF: 0 Referrals: [facility] [Outside] <Alison Power DO - Last Filed: 02/28/19 07:41> Cosign ED Attending Cosignature Attestation: I was immediately available in the department for consultation. This documentation has been reviewed and I agree with assessment and plan. Supervised by Alison Power DO
== END 2019-02-27 18:19 | disposition home or self-care (01) ==
PROVIDERS: Emergency Provider Nurse Practitioner Family
DX: R10.30 Lower abdominal pain, unspecified (principal); N83.202 Unspecified ovarian cyst, left side
CPT/HCPCS: 36415; 76830; 76856; 80053; 81003; 81025; 82150; 83690; 85025; 99283; 99284

== ENCOUNTER 2019-04-15 17:41 | Emergency (ER) | payer OTHER, SELFPAY ==
[2019-04-15 17:52] VITALS: BP 140/86; PULSE 70; RESP 20; TEMP 36.4; O2SAT 100
--- NOTE | 2019-04-15 17:59 | DI.RAD.S_ITS ---
PROCEDURE: XR CHEST 2V INDICATIONS: chest pain/dyspnea TECHNIQUE: 2 views of the chest were acquired. COMPARISON: None. FINDINGS: Surgical changes and devices: None. Lungs and pleura: Lungs are clear. No pleural effusions or pneumothorax. Mediastinum: Mediastinal contours are normal. Heart size is normal. Bones and chest wall: No suspicious bony abnormalities. Soft tissues appear unremarkable. IMPRESSION: No acute cardiopulmonary pathology. Dictated by: Hemal Curry M.D. on 04/15/2019 at 18:48 Approved by: Hemal Curry M.D. on 04/15/2019 at 18:48
[2019-04-15 18:38] LABS: Add Manual Diff / Slide Review NO; Basophils Absolute Auto 100 /uL (0-100); Basophils Percent Auto 0.5 % (0-2); Eosinophils Absolute Auto 200 /uL (0-450); Hematocrit 40.3 % (36-46); Hemoglobin 13.7 g/dL (12.0-16.0); Lymphocytes Absolute Auto 3000 /uL (1100-4500); Lymphocytes Percent Auto 25.4 % (25-40); Mean Corpuscular HGB Conc 33.9 % (30-36); Mean Corpuscular Hemoglobin 30.9 PG (26-34); Mean Corpuscular Volume 91.1 fL (80-100); Monocytes Absolute Auto 600 /uL (0-900); Monocytes Percent Auto 4.7 % (3-14); Neutrophils Absolute Auto 7900 /uL (1500-7000); Neutrophils Percent Auto 67.4 % (50-75); Platelet Count 338 X10^3/uL (150-400); Red Blood Cell Count 4.42 X10^6/uL (4.0-5.2); Red Cell Distribution Width 12.7 % (11.6-14.8); White Blood Cell Count 11.7 X10^3/uL (4.5-11.0)
[2019-04-15 18:52] LABS: Alanine Aminotransferase 14 IU/L (9-52); Albumin 4.4 g/dL (3.5-5.0); Albumin Globulin Ratio 1.3 (1.0-2.8); Alkaline Phosphatase 59 U/L (38-126); Aspartate Aminotransferase 22 IU/L (14-36); BUN Creatinine Ratio 18.9 (6-22); Bilirubin Total 0.2 mg/dL (0.2-1.3); Blood Urea Nitrogen 17 mg/dL (7-17); Calcium 9.3 mg/dL (8.4-10.2); Carbon Dioxide 24 mmol/L (22-32); Chloride 106 mmol/L (98-107); Creatine Kinase 81 U/L (30-135); Estimated Glomerular Filt Rate > 60.0 mL/min (>60); Globulin 3.3 g/dL (1.7-4.1); Glucose 126 mg/dL (70-100); HEMOLYSIS < 15 (0-50); Potassium 3.1 mmol/L (3.4-5.1); Sodium 140 mmol/L (137-145); Total Protein 7.7 g/dL (6.3-8.2)
--- NOTE | 2019-04-15 18:57 | ED.CHESTPAIN ---
HPI - Chest Pain General Chief Complaint: Chest Pain Stated Complaint: Chest pains, right side and into back Time Seen by Provider: 04/15/19 18:10 Source: patient Mode of arrival: Ambulatory Limitations: no limitations History of Present Illness HPI narrative: Patient is a 28-year-old female here for evaluation of right-sided chest pain radiating upper right shoulder and also her right upper back. Symptoms been going on for several weeks now. She has seen her primary doctor for this. Is not currently on any muscle relaxers. Symptoms have been consistent with some waxing and waning episodes with a past several weeks. She has not seen physical therapy but there has been discussion about this with her primary provider. States the symptoms are not necessarily worse today not necessarily changed at all today but did want evaluated. Patient also describes tension to the back of her head. She states she has headache in the back of her head. She also states she has a history of migraines and is currently having a migraine headache. Related Data Home Medications Medication Instructions Recorded Confirmed citalopram 10 mg PO QPM 02/27/19 02/27/19 hydroxyzine HCl 25 mg PO QID 02/27/19 02/27/19 magnesium 1 tab PO QPM 02/27/19 02/27/19 multivitamin with minerals 1 tab PO QPM 02/27/19 02/27/19 [Hair,Skin and Nails] ondansetron 4 mg PO PRN PRN 02/27/19 02/27/19 rabeprazole 20 mg PO BID 02/27/19 02/27/19 zolmitriptan 2.5 mg PO PRN PRN 02/27/19 02/27/19 Previous Rx's Medication Instructions Recorded cyclobenzaprine 10 mg PO TID PRN #14 tab 04/15/19 Allergies Allergy/AdvReac Type Severity Reaction Status Date / Time No Known Drug Allergies Allergy Verified 02/27/19 14:31 Review of Systems Constitutional Constitutional: Denies fever(s) and Reports headache(s) ENT Ears, Nose, Mouth, and Throat: Reports headache(s) Cardiovascular Cardiovascular: Reports chest pain (Right-sided), Denies syncope, Denies edema, Denies irregular heart rhythm, Denies palpitations and Denies dyspnea Respiratory Respiratory: Denies cough and Denies dyspnea Gastrointestinal Gastrointestinal: Denies abdominal pain, Denies nausea and Denies vomiting Genitourinary Genitourinary: Denies dysuria Musculoskeletal Musculoskeletal: Denies tingling Comments: Right shoulder pain and right upper back pain Integumentary/Breasts Skin/Breast: Denies lesions and Denies rash Neurologic Neurologic: Denies behavioral changes, Denies syncope, Reports headache(s), Denies tingling and Denies paresthesias Psychiatric Psychiatric: Denies anxiety and Denies behavioral changes Endocrine Endocrine: Denies palpitations Hematologic/Lymphatic Hematologic/Lymphatic: Denies easy bleeding and Denies easy bruising Allergic/Immunologic Allergic/Immunologic: Denies urticaria [facility] Medical History (Updated 04/16/19 @ 02:08 by Diaz Jimenez DO) Dermoid cyst (Acute) Migraine headache (Acute) Social History Smoking Status: Former smoker Social History Smoking Status: Former smoker Exam Initial Vital Signs Initial Vital Signs: Vital Signs Temperature 97.6 F 04/15/19 17:52 Pulse Rate 70 04/15/19 17:52 Respiratory Rate 20 04/15/19 17:52 Blood Pressure 140/86 04/15/19 17:52 Pulse Oximetry 100 04/15/19 17:52 Const General: cooperative, comfortable, well developed and well groomed Orientation: alert, awake and oriented x3 HENMT Head: normal to inspection and normocephalic Ears: TM's normal bilaterally Nose: external nose normal Resp Effort & Inspection: normal respiratory effort Auscultation: clear to auscultation bilaterally Cardio Rate: regular rate Rhythm: regular rhythm GI Inspection: non-distended Palpation: soft Skin Lesions: no lesions Rashes: no rashes Neuro General: alert, awake and oriented x3 Cranial Nerves: CN's II-XI intact bilaterally Cognition: normal cognition Speech: speech normal Gait: normal gait Motor: muscle tone normal throughout Sensory Exam: no sensory deficits noted Extrem General: normal to inspection, capillary refill normal and No edema Other: Full range of motion of the right shoulder. Does have tenderness to palpation over the upper back specifically over the trapezius muscle in this area. Psych Appearance: grossly normal and well kempt Course Orders Ordered: ED Orders 04/15/19 17:59 XR chest 2V Stat 04/15/19 18:02 EKG-12 Lead Stat 04/15/19 18:30 Complete Blood Count AUTO DIFF Stat Comprehensive Metabolic Panel Stat Troponin & CK Cardiac Panel Stat Vital Signs Vital signs: Vital Signs - 8 hr 04/15/19 17:52 Temperature 97.6 F Pulse Rate 70 Respiratory Rate 20 Blood Pressure 140/86 Pulse Oximetry 100 MDM - Chest Pain Lab Data Attestation: I reviewed the patient's lab results. Result diagrams: 04/15/19 18:30 04/15/19 18:30 Labs: Lab Results 04/15/19 04/15/19 Range/Units 18:30 18:30 WBC 11.7 H (4.5-11.0) X10^3/uL RBC 4.42 (4.0-5.2) X10^6/uL Hgb 13.7 (12.0-16.0) g/dL Hct 40.3 (36-46) % MCV 91.1 (80-100) fL MCH 30.9 (26-34) PG MCHC 33.9 (30-36) % RDW 12.7 (11.6-14.8) % Plt Count 338 (150-400) X10^3/uL Neut % (Auto) 67.4 (50-75) % Lymph % (Auto) 25.4 (25-40) % [place] % (Auto) 4.7 (3-14) % Eos % (Auto) 2.0 (2-4) % Baso % (Auto) 0.5 (0-2) % Neut # (Auto) 7900 H (5931-5156) /uL Lymph # (Auto) 3000 (9698-9208) /uL [place] # (Auto) 600 (0-900) /uL Eos # (Auto) 200 (0-450) /uL Baso # (Auto) 100 (0-100) /uL Sodium 140 (137-145) mmol/L Potassium 3.1 L (3.4-5.1) mmol/L Chloride 106 (98-107) mmol/L Carbon Dioxide 24 (22-32) mmol/L BUN 17 (7-17) mg/dL Creatinine 0.90 (0.52-1.04) mg/dL Estimated GFR > 60.0 (>60) mL/min BUN/Creatinine Ratio 18.9 (6-22) Glucose 126 H (70-100) mg/dL Calcium 9.3 (8.4-10.2) mg/dL Total Bilirubin 0.2 (0.2-1.3) mg/dL AST 22 (14-36) IU/L ALT 14 (9-52) IU/L Alkaline Phosphatase 59 (38-126) U/L Total Creatine Kinase 81 (30-135) U/L CK-MB (CK-2) TNP CK-MB (CK-2) Rel Index TNP Troponin I < 0.012 (0.01-0.034) ng/mL Total Protein 7.7 (6.3-8.2) g/dL Albumin 4.4 (3.5-5.0) g/dL Globulin 3.3 (1.7-4.1) g/dL Albumin/Globulin Ratio 1.3 (1.0-2.8) Imaging Data Chest x-ray: Radiologist's impression: [address] [address] XRay Report Signed Patient: Yanira Shahid [facility]#: [id number] : 1990Acct:[id number] Age/Sex: 28 FDate of Service: 04/15/19 Loc: ED Accession Number: [id number] Procedure: XR chest 2V Ordering Provider: Juan Barber D.O. PROCEDURE: XR CHEST 2V INDICATIONS: chest pain/dyspnea TECHNIQUE: 2 views of the chest were acquired. COMPARISON: None. FINDINGS: Surgical changes and devices: None. Lungs and pleura: Lungs are clear. No pleural effusions or pneumothorax. Mediastinum: Mediastinal contours are normal. Heart size is normal. Bones and chest wall: No suspicious bony abnormalities. Soft tissues appear unremarkable. IMPRESSION: No acute cardiopulmonary pathology. Dictated by: Hemal Curry M.D. on 04/15/2019 at 18:48 Approved by: Hemal Curry M.D. on 04/15/2019 at 18:48 ECG Data Attestation: I personally reviewed and interpreted this ECG as follows: Prior ECG tracings: not available for review Interpretation: Sinus rhythm Ventricular rate is 76 Normal axis Normal QRS Normal QTC No ST T wave changes MDM Narrative Medical decision making narrative: Patient's history and physical exam is most consistent with muscle spasms in her right upper back and right shoulder. I do suspect this is causing a tension headache which was then causing migraine headaches. Low suspicion for ACS. Low suspicion for TIA. Low suspicion for CVA. Had no skin changes. She does not have a specific trigger point just generalized soreness and upper back. This has been going on for several weeks now. Low suspicion for any acute pathology. No indication for further workup. Not currently on any muscle relaxation. Will send home with a prescription for this. Discussed with her about talk with her primary doctor about seeing physical therapy or headache specialist or both. She was given return precautions and follow-up instructions. She expressed understanding and agreement with plan. Discharge Plan Departure Patient Disposition: Home Clinical Impression: Neck strain Qualifiers: Encounter type: initial encounter Qualified Code(s): S16.1XXA - Strain of muscle, fascia and tendon at neck level, initial encounter Discharge Date/Time: 04/15/19 19:09 Instructions: DI for Muscle Spasm Activity Restrictions/Additional Instructions: Continue to take your medications as directed. Contact your primary care provider for a follow up. Return to the ER for any new or worsening symptoms. Prescriptions: New cyclobenzaprine 10 mg tablet 10 mg PO TID PRN (Reason: muscle spasm) Qty: 14 RF: 0 No Action citalopram 10 mg tablet 10 mg PO QPM RF: 0 hydroxyzine HCl 25 mg tablet 25 mg PO QID RF: 0 rabeprazole 20 mg tablet,delayed release (DR/EC) 20 mg PO BID RF: 0 zolmitriptan 2.5 mg tablet,disintegrating 2.5 mg PO PRN PRN (Reason: Migraine Headache) RF: 0 multivitamin with minerals [Hair,Skin and Nails] Tablet 1 tab PO QPM RF: 0 ondansetron 4 mg tablet,disintegrating 4 mg PO PRN PRN (Reason: Nausea) RF: 0 magnesium 1 tab PO QPM RF: 0 Referrals: Jeni Duffy DO [Primary Care Provider] -
[2019-04-15 19:04] LABS: Troponin I < 0.012 ng/mL (0.01-0.034)
== END 2019-04-15 19:09 | disposition home or self-care (01) ==
PROVIDERS: Emergency Medicine; Emergency Provider Emergency Medicine; PCP Family Medicine
DX: S16.1XXA Strain of muscle, fascia and tendon at neck level, initial encounter (principal)
CPT/HCPCS: 71046; 80053; 82550; 84484; 85025; 93005; 93010; 99282; 99285

== ENCOUNTER 2021-08-15 16:54 | Emergency (ER) | payer OTHER, SELFPAY ==
[2021-08-15 16:59] VITALS: BP 131/83; PULSE 98; RESP 18; TEMP 36.9; O2SAT 98
[2021-08-15 17:07] VITALS: PULSE 98; O2SAT 100
[2021-08-15 17:08] VITALS: BP 133/72; PULSE 97; O2SAT 100
--- NOTE | 2021-08-15 17:28 | ED_ITS ---
HPI - Headache <Abimbola Mantilla MD - Last Filed: 08/22/21 06:34> General Chief Complaint: Headache Stated Complaint: Hx of migraines/headache/neck pain x7days Time Seen by Provider: 08/15/21 17:17 Mode of arrival: Ambulatory History of Present Illness HPI Narrative: 30-year-old woman with a history of migraine headaches, reflux, anxiety and depression currently on Topamax to help with migraines with diagnosed with COVID on August 03 and had moderate headaches while she was acutely ill once the COVID symptoms began to improve however she has continued to have a severe headache. She has had migraine headache now for 7 days has tried all of her home medications and is not improving. She does not describe any acute paresthesias or focal weakness. She has not had any vision changes. No recent fevers. She has a slight cough after her COVID symptoms that does seem to be improving. No vomiting or diarrhea. Related Data Home Medications Medication Instructions Recorded Confirmed citalopram 10 mg tablet 10 mg PO QPM 02/27/19 08/12/21 hydroxyzine HCl 25 mg tablet 25 mg PO QID 02/27/19 08/12/21 magnesium 1 tab PO QPM 02/27/19 08/12/21 multivitamin with minerals 1 tab PO QPM /02/0808/12/21 (Hair,Skin and Nails) [id number] 1 cap PO Q8H PRN 08/12/21 08/12/21 50 mg-300 mg-40 mg capsule omeprazole 40 mg capsule,delayed 40 mg PO DAILY 08/12/21 08/12/21 release rizatriptan 10 mg tablet 10 mg PO ONCE 08/12/21 08/12/21 topiramate 50 mg tablet 50 mg PO BID 08/12/21 08/12/21 Previous Rx's Medication Instructions Recorded ketorolac 10 mg tablet 10 mg PO Q6H PRN #14 tab 08/15/21 metoclopramide HCl 10 mg tablet 10 mg PO Q6H PRN #10 tab 08/15/21 Allergies Allergy/AdvReac Type Severity Reaction Status Date / Time ketorolac [From Toradol] Allergy Verified 08/15/21 17:01 Review of Systems <Abimbola Mantilla MD - Last Filed: 08/22/21 06:34> Review of Systems Narrative: Remainder of complete review of systems is otherwise unremarkable except for that included in the HPI. Patient History <Abimbola Mantilla MD - Last Filed: 08/22/21 06:34> Medical History (Updated 08/15/21 @ 18:15 by Abimbola Mantilla MD) Anxiety and depression COVID-19 Dermoid cyst Migraine headache Social History Smoking Status: Former smoker Smoking Status: Former smoker Substance Use Type: marijuana Exam <Abimbola Mantilla MD - Last Filed: 08/22/21 06:34> Initial Vital Signs Initial Vital Signs: Vital Signs Temperature 98.5 F 08/15/21 16:59 Pulse Rate 98 H 08/15/21 16:59 Respiratory Rate 18 08/15/21 16:59 Blood Pressure 131/83 08/15/21 16:59 Pulse Oximetry 98 08/15/21 16:59 General: Healthy appearing, in mild distress. Able to give a complete and coherent history. Well-nourished well-developed HEENT: Moist mucous membranes, normal sclera with reactive pupils, Neck: No JVD, supple, no cervical adenopathy Respiratory: Lungs are clear to auscultation, no wheezing no rales no rhonchi. Full and symmetrical air movement Cardiac: Regular rate and rhythm no murmurs no bruits Abdomen: Soft, nontender, good bowel tones, no flank pain Skin: Warm and dry, no rashes Neurologic: Grossly neurologically intact with no obvious asymmetries or abnormalities Extremities: No trauma, well perfused Psych: Cooperative, appropriate insight and affect <Juan Barber DO - Last Filed: 08/15/21 21:09> Initial Vital Signs Initial Vital Signs: Vital Signs Temperature 98.5 F 08/15/21 16:59 Pulse Rate 98 H 08/15/21 16:59 Respiratory Rate 18 08/15/21 16:59 Blood Pressure 131/83 08/15/21 16:59 Pulse Oximetry 98 08/15/21 16:59 Course <Abimbola Mantilla MD - Last Filed: 08/22/21 06:34> Orders Ordered: Discontinued Medications Dexamethasone (Dexamethasone 10 Mg/Ml Vial) 10 mg IV NOW ONE Stop: 08/15/21 17:56 Last Admin: 08/15/21 18:15 Dose: 10 mg Documented by: ALBARO Diphenhydramine HCl (Diphenhydramine 50 Mg/Ml Vial) 25 mg IV NOW ONE Stop: 08/15/21 17:56 Last Admin: 08/15/21 18:14 Dose: 25 mg Documented by: JOSELYNW Sodium Chloride (Normal Saline 0.9%) 1,000 mls @ 1,000 mls/hr IV BOLUS ONE Stop: 08/15/21 18:54 Last Infusion: 08/15/21 19:34 Dose: 0 mls/hr Documented by: [email or web address] Admin: 08/15/21 18:14 Dose: 1,000 mls/hr Documented by: ALBARO Ketorolac Tromethamine (Ketorolac 30 Mg/Ml Vial) 15 mg IV NOW ONE Stop: 08/15/21 20:31 Last Admin: 08/15/21 20:41 Dose: 15 mg Documented by: LOU Metoclopramide HCl (Metoclopramide 10 Mg/2 Ml Inj) 10 mg IV NOW ONE Stop: 08/15/21 17:56 Last Admin: 08/15/21 18:15 Dose: 10 mg Documented by: ALBARO Vital Signs Vital signs: Vital Signs - 8 hr 08/15/21 16:59 08/15/21 17:07 08/15/21 17:08 Temperature 98.5 F Pulse Rate 98 H 98 H 97 H Respiratory Rate 18 Blood Pressure 131/83 133/72 Pulse Oximetry 98 100 100 08/15/21 17:39 08/15/21 17:42 Temperature Pulse Rate 80 71 Respiratory Rate Blood Pressure 149/81 H Pulse Oximetry 94 96 <Juan Barber DO - Last Filed: 08/15/21 21:09> Course Course Narrative: Patient received in sign-out from Dr. Mantilla. I performed an independent history and physical exam. She has a very reassuring history and physical exam of this is most likely a consequence of her recent COVID diagnosis. Initially she had not been given Toradol as it was considered possibly an allergy, however when I spoke with her about this possible allergy see states that she has had other NSAIDs multiple times without any issue. Furthermore, she developed some swelling of her lips the morning after receiving an intramuscular injection of Toradol but states she has been having episodes of lip swelling like this off and on for many years without obvious source or cause. Orders Ordered: Discontinued Medications Dexamethasone (Dexamethasone 10 Mg/Ml Vial) 10 mg IV NOW ONE Stop: 08/15/21 17:56 Last Admin: 08/15/21 18:15 Dose: 10 mg Documented by: JOSELYNW Diphenhydramine HCl (Diphenhydramine 50 Mg/Ml Vial) 25 mg IV NOW ONE Stop: 08/15/21 17:56 Last Admin: 08/15/21 18:14 Dose: 25 mg Documented by: JOSELYNW Sodium Chloride (Normal Saline 0.9%) 1,000 mls @ 1,000 mls/hr IV BOLUS ONE Stop: 08/15/21 18:54 Last Infusion: 08/15/21 19:34 Dose: 0 mls/hr Documented by: Admin: 08/15/21 18:14 Dose: 1,000 mls/hr Documented by: ALBARO Ketorolac Tromethamine (Ketorolac 30 Mg/Ml Vial) 15 mg IV NOW ONE Stop: 08/15/21 20:31 Last Admin: 08/15/21 20:41 Dose: 15 mg Documented by: LOU Metoclopramide HCl (Metoclopramide 10 Mg/2 Ml Inj) 10 mg IV NOW ONE Stop: 08/15/21 17:56 Last Admin: 08/15/21 18:15 Dose: 10 mg Documented by: JOSELYNW Vital Signs Vital signs: Vital Signs - 8 hr 08/15/21 16:59 08/15/21 17:07 08/15/21 17:08 Temperature 98.5 F Pulse Rate 98 H 98 H 97 H Respiratory Rate 18 Blood Pressure 131/83 133/72 Pulse Oximetry 98 100 100 08/15/21 17:39 08/15/21 17:42 Temperature Pulse Rate 80 71 Respiratory Rate Blood Pressure 149/81 H Pulse Oximetry 94 96 MDM - Headache <Abimbola Mantilla MD - Last Filed: 08/22/21 06:34> Lab Data Result diagrams: 08/15/21 17:15 08/15/21 17:15 Labs: Lab Results 08/15/21 08/15/21 Range/Units 17:15 17:15 WBC 7.9 (4.5-11.0) X10^3/uL RBC 4.51 (4.0-5.2) X10^6/uL Hgb 14.2 (12.0-16.0) g/dL Hct 40.8 (36-46) % MCV 90.3 (80-100) fL MCH 31.5 (26-34) PG MCHC 34.8 (30-36) % RDW 12.5 (11.6-14.8) % Plt Count 377 (150-400) X10^3/uL Neut % (Auto) 51.7 (50-75) % Lymph % (Auto) 38.5 (25-40) % [place] % (Auto) 7.4 (3-14) % Eos % (Auto) 2.0 (2-4) % Baso % (Auto) 0.4 (0-2) % Neut # (Auto) 4100 (9236-8913) /uL Lymph # (Auto) 3100 (0440-0755) /uL [place] # (Auto) 600 (0-900) /uL Eos # (Auto) 200 (0-450) /uL Baso # (Auto) 0 (0-100) /uL Sodium 141 (137-145) mmol/L Potassium 3.4 (3.4-5.1) mmol/L Chloride 109 H (98-107) mmol/L Carbon Dioxide 25 (22-32) mmol/L BUN 11 (7-17) mg/dL Creatinine 1.05 H (0.52-1.04) mg/dL Estimated GFR > 60.0 (>60) mL/min BUN/Creatinine Ratio 10.5 (6-22) Glucose 77 (70-100) mg/dL Calcium 9.4 (8.4-10.2) mg/dL Total Bilirubin 0.3 (0.2-1.3) mg/dL AST 22 (14-36) IU/L ALT 18 (<35) IU/L Alkaline Phosphatase 51 (38-126) U/L Total Protein 7.8 (6.3-8.2) g/dL Albumin 4.5 (3.5-5.0) g/dL Globulin 3.3 (1.7-4.1) g/dL Albumin/Globulin Ratio 1.4 (1.0-2.8) MDM Narrative Medical decision making narrative: 30-year-old woman with headache x1 week following a COVID infection. She has a history of chronic migraine and it feels very similar to that it just has not gone away. Blood work is reassuring. She is currently responding nicely to IV fluids, Decadron, Reglan and IV Benadryl. <Juancaro Barber, DO - Last Filed: 08/15/21 21:09> Lab Data Labs: Lab Results 08/15/21 08/15/21 Range/Units 17:15 17:15 WBC 7.9 (4.5-11.0) X10^3/uL RBC 4.51 (4.0-5.2) X10^6/uL Hgb 14.2 (12.0-16.0) g/dL Hct 40.8 (36-46) % MCV 90.3 (80-100) fL MCH 31.5 (26-34) PG MCHC 34.8 (30-36) % RDW 12.5 (11.6-14.8) % Plt Count 377 (150-400) X10^3/uL Neut % (Auto) 51.7 (50-75) % Lymph % (Auto) 38.5 (25-40) % [place] % (Auto) 7.4 (3-14) % Eos % (Auto) 2.0 (2-4) % Baso % (Auto) 0.4 (0-2) % Neut # (Auto) 4100 (9373-3767) /uL Lymph # (Auto) 3100 (3167-9277) /uL [place] # (Auto) 600 (0-900) /uL Eos # (Auto) 200 (0-450) /uL Baso # (Auto) 0 (0-100) /uL Sodium 141 (137-145) mmol/L Potassium 3.4 (3.4-5.1) mmol/L Chloride 109 H (98-107) mmol/L Carbon Dioxide 25 (22-32) mmol/L BUN 11 (7-17) mg/dL Creatinine 1.05 H (0.52-1.04) mg/dL Estimated GFR > 60.0 (>60) mL/min BUN/Creatinine Ratio 10.5 (6-22) Glucose 77 (70-100) mg/dL Calcium 9.4 (8.4-10.2) mg/dL Total Bilirubin 0.3 (0.2-1.3) mg/dL AST 22 (14-36) IU/L ALT 18 (<35) IU/L Alkaline Phosphatase 51 (38-126) U/L Total Protein 7.8 (6.3-8.2) g/dL Albumin 4.5 (3.5-5.0) g/dL Globulin 3.3 (1.7-4.1) g/dL Albumin/Globulin Ratio 1.4 (1.0-2.8) MDM Narrative Medical decision making narrative: 30-year-old woman with headache x1 week following a COVID infection. She has a history of chronic migraine and it feels very similar to that it just has not gone away. Blood work is reassuring. She is currently responding nicely to IV fluids, Decadron, Reglan and IV Benadryl. Headache considerations include, but not limited to: Subarachnoid hemorrhage, but unlikely as patient denies sudden onset of pain, not worst of life, or neck pain Meningitis considered, but thought unlikely given lack of Brudzinski's, Kernig's sign, altered mental status or fever Giant cell arteritis considered, but thought unlikely given lack of unilateral findings, pain in sabianist, vision change HTN Emergency considered, but thought unlikely given normal vitals Other serious diagnoses considered unlikely given lack of red flag findings such as sudden onset, increasing frequency, immunocompromise, systemic signs (fever, chills, stiff neck, or rash), focal neurologic findings, trauma, blood thinners, etc. Discharge Plan Departure Patient Disposition: Home Clinical Impression: Migraine, COVID-19 Instructions: DI for Migraine Activity Restrictions/Additional Instructions: Thank you for coming in today I am glad her headache responded to migraine treatment. We have been seeing COVID exacerbating migraines You did get 10 mg of IV Decadron to help reduce inflammation and hopefully prevent any rebound type headache as the rest of the medicines wear off If your headache does return tomorrow please feel free to use your usual headache regimen that you have at home 1st and if that is ineffective you can return to the emergency department I hope you feel better Prescriptions: New ketorolac 10 mg tablet 10 mg PO Q6H PRN (Reason: pain) Qty: 14 0RF metoclopramide HCl 10 mg tablet 10 mg PO Q6H PRN (Reason: nausea and vomiting) Qty: 10 0RF No Action omeprazole 40 mg capsule,delayed release(DR/EC) 40 mg PO DAILY 0RF topiramate 50 mg tablet 50 mg PO BID 0RF rizatriptan 10 mg tablet 10 mg PO ONCE 0RF Rx Instructions: as a single dose gtbfekfsjx-bvheqdqxzhqrs-lzvt 50-300-40 mg capsule 1 cap PO Q8H PRN0RF citalopram 10 mg tablet 10 mg PO QPM 0RF hydroxyzine HCl 25 mg tablet 25 mg PO QID 0RF Label Comments: patient states takes pm multivitamin with minerals [Hair,Skin and Nails] Tablet 1 tab PO QPM 0RF magnesium 1 tab PO QPM 0RF Referrals: Jeni Duffy DO [Primary Care Provider] - ED Sign-out <Abimbola Mantilla MD - Last Filed: 08/22/21 06:34> Cosign ED Attending Jonesature Attestation: I was immediately available in the department for consultation throughout this patient's visit. I agree with documentation as above. Abimbola Mantilla MD
[2021-08-15 17:39] VITALS: PULSE 80; O2SAT 94
[2021-08-15 17:42] VITALS: BP 149/81; PULSE 71; O2SAT 96
[2021-08-15 18:04] LABS: Add Manual Diff / Slide Review NO; Basophils Absolute Auto 0 /uL (0-100); Basophils Percent Auto 0.4 % (0-2); Eosinophils Absolute Auto 200 /uL (0-450); Hematocrit 40.8 % (36-46); Hemoglobin 14.2 g/dL (12.0-16.0); Lymphocytes Absolute Auto 3100 /uL (1100-4500); Lymphocytes Percent Auto 38.5 % (25-40); Mean Corpuscular HGB Conc 34.8 % (30-36); Mean Corpuscular Hemoglobin 31.5 PG (26-34); Mean Corpuscular Volume 90.3 fL (80-100); Monocytes Absolute Auto 600 /uL (0-900); Monocytes Percent Auto 7.4 % (3-14); Neutrophils Absolute Auto 4100 /uL (1500-7000); Neutrophils Percent Auto 51.7 % (50-75); Platelet Count 377 X10^3/uL (150-400); Red Blood Cell Count 4.51 X10^6/uL (4.0-5.2); Red Cell Distribution Width 12.5 % (11.6-14.8); White Blood Cell Count 7.9 X10^3/uL (4.5-11.0)
[2021-08-15 18:09] LABS: Alanine Aminotransferase 18 IU/L (<35); Albumin 4.5 g/dL (3.5-5.0); Albumin Globulin Ratio 1.4 (1.0-2.8); Alkaline Phosphatase 51 U/L (38-126); Aspartate Aminotransferase 22 IU/L (14-36); BUN Creatinine Ratio 10.5 (6-22); Bilirubin Total 0.3 mg/dL (0.2-1.3); Blood Urea Nitrogen 11 mg/dL (7-17); Calcium 9.4 mg/dL (8.4-10.2); Carbon Dioxide 25 mmol/L (22-32); Chloride 109 mmol/L (98-107); Estimated Glomerular Filt Rate > 60.0 mL/min (>60); Globulin 3.3 g/dL (1.7-4.1); Glucose 77 mg/dL (70-100); HEMOLYSIS < 15 (0-50); Potassium 3.4 mmol/L (3.4-5.1); Sodium 141 mmol/L (137-145); Total Protein 7.8 g/dL (6.3-8.2)
[2021-08-15] MEDS: SODIUM CHLORIDE 0.9% 1,000 ML 1000 ML IV (18:14)
[2021-08-15] MEDS: diphenhydrAMINE 50 MG/ML VIAL 25 MG IV (18:14)
[2021-08-15] MEDS: METOCLOPRAMIDE 10 MG/2 ML INJ IV (18:15)
[2021-08-15] MEDS: DEXAMETHASONE 10 MG/ML VIAL IV (18:15)
[2021-08-15] MEDS: KETOROLAC 30 MG/ML VIAL 15 MG IV (20:41)
[2021-08-15 21:14] VITALS: BP 116/73; PULSE 74; RESP 18; O2SAT 96
== END 2021-08-15 21:15 | disposition home or self-care (01) ==
PROVIDERS: Emergency Medicine; Emergency Provider Emergency Medicine; PCP Family Medicine
DX: G43.909 Migraine, unspecified, not intractable, without status migrainosus (principal); U07.1 COVID-19
CPT/HCPCS: 36415; 80053; 85025; 96361; 96374; 96375; 99284; J1100; J1200; J1885; J2765

== ENCOUNTER 2021-09-14 16:53 | Emergency (ER) | payer OTHER, SELFPAY ==
[2021-09-14 16:55] VITALS: BP 148/105; PULSE 90; RESP 20; TEMP 36; O2SAT 100; BMI 29.2
[2021-09-14 18:19] LABS: UR Morphine/Opiate cutoff 300 Negative (Negative); Ur Creatinine Normal (Normal); Ur Specific Gravity Normal (Normal); Urine Amphetamines Negative (Negative); Urine Barbiturates Negative (Negative); Urine Benzodiazepines Negative (Negative); Urine Cocaine Negative (Negative); Urine MDMA Negative (Negative); Urine Methadone Negative (Negative); Urine Methamphetamines Negative (Negative); Urine Oxycodone Negative (Negative); Urine Phencyclidine Negative (Negative); Urine Tetrahydrocannabinol Positive (Negative); Urine Tricyclic Antidepressant Negative (Negative); Urine pH Normal (Normal)
[2021-09-14 18:21] LABS: Add Manual Diff / Slide Review NO; Basophils Absolute Auto 0 /uL (0-100); Basophils Percent Auto 0.3 % (0-2); Eosinophils Absolute Auto 100 /uL (0-450); Eosinophils Percent Auto 0.8 % (2-4); Hematocrit 41.4 % (36-46); Hemoglobin 14.3 g/dL (12.0-16.0); Lymphocytes Absolute Auto 2600 /uL (1100-4500); Lymphocytes Percent Auto 30.2 % (25-40); Mean Corpuscular HGB Conc 34.5 % (30-36); Mean Corpuscular Hemoglobin 31.1 PG (26-34); Mean Corpuscular Volume 90.1 fL (80-100); Monocytes Absolute Auto 400 /uL (0-900); Monocytes Percent Auto 5.1 % (3-14); Neutrophils Absolute Auto 5400 /uL (1500-7000); Neutrophils Percent Auto 63.6 % (50-75); Platelet Count 342 X10^3/uL (150-400); Red Blood Cell Count 4.59 X10^6/uL (4.0-5.2); Red Cell Distribution Width 13.6 % (11.6-14.8); White Blood Cell Count 8.5 X10^3/uL (4.5-11.0)
[2021-09-14 18:30] LABS: Acetaminophen < 10 ug/mL (10-30); Alanine Aminotransferase 21 IU/L (<35); Albumin 4.8 g/dL (3.5-5.0); Albumin Globulin Ratio 1.4 (1.0-2.8); Alkaline Phosphatase 53 U/L (38-126); Aspartate Aminotransferase 22 IU/L (14-36); BUN Creatinine Ratio 13.4 (6-22); Bilirubin Total 0.4 mg/dL (0.2-1.3); Blood Urea Nitrogen 13 mg/dL (7-17); Calcium 9.7 mg/dL (8.4-10.2); Carbon Dioxide 22 mmol/L (22-32); Chloride 108 mmol/L (98-107); Estimated Glomerular Filt Rate > 60.0 mL/min (>60); Ethanol (ETOH) < 10 mg/dL; Globulin 3.4 g/dL (1.7-4.1); Glucose 125 mg/dL (70-100); HEMOLYSIS < 15 (0-50); Potassium 3.5 mmol/L (3.4-5.1); Salicylate < 1.0 mg/dL (<20); Sodium 139 mmol/L (137-145); Total Protein 8.2 g/dL (6.3-8.2)
--- NOTE | 2021-09-14 18:45 | ED_ITS ---
HPI - Psych General Chief Complaint: Psychiatric Symptoms Stated Complaint: SI Time Seen by Provider: 09/14/21 17:35 Source: patient Mode of arrival: Ambulatory History of Present Illness HPI Narrative: 30-year-old female daily smoker with history of depression and anxiety presents with a chief complaint of increasing presents of overwhelming depression and thoughts of suicide with a plan. She has been taking her medications as directe d and denies any emissions. She denies any alcohol or street drugs but does use a fair amount of marijuana. She has no chest pain or shortness of breath. She denies any fever or chills. She is here of her own volition is requesting help, and placement into a psychiatric facility. She has been in close contact with her primary care provider whom prescribed her medications as well as her mental health provider as recently as earlier today but feels like she would benefit from a more comprehensive and intensive approach. Related Data Home Medications Medication Instructions Recorded Confirmed citalopram 10 mg tablet 20 mg PO QPM 02/27/19 09/14/21 hydroxyzine HCl 25 mg tablet 25 mg PO QID 02/27/19 09/14/21 omeprazole 40 mg capsule,delayed 40 mg PO DAILY 08/12/21 09/14/21 release topiramate 50 mg tablet 25 mg PO TID 08/12/21 09/14/21 aripiprazole 2 mg tablet 2 mg PO DAILY 09/14/21 09/14/21 eletriptan 40 mg tablet 40 mg PO DAILY PRN 09/14/21 09/14/21 ondansetron HCl 4 mg tablet 4 mg PO Q6H PRN 09/14/21 09/14/21 Previous Rx's Medication Instructions Recorded ketorolac 10 mg tablet 10 mg PO Q6H PRN #14 tab 08/15/21 metoclopramide HCl 10 mg tablet 10 mg PO Q6H PRN #10 tab 08/15/21 Allergies Allergy/AdvReac Type Severity Reaction Status Date / Time ketorolac [From Toradol] Allergy Verified 08/15/21 17:01 Review of Systems Review of Systems Narrative: GENERAL: Denies chills, fatigue, malaise, fever, sweats. HEENT: Denies sinus pain, ear pain, sore throat, difficulty swallowing, dizziness. RESPIRATORY: Denies dyspnea, cough, wheezing, hemoptysis, sputum. CARDIOVASCULAR: Denies chest pain, palpitations, orthopnea, edema, GASTROINTESTINAL: Denies nausea, vomiting, abdominal pain, diarrhea, constipation, melena. : Denies dysuria, frequency, incontinence, hematuria, urinary retention. MUSCULOSKELETAL: denies weakness, joint pain, or bony pain SKIN: Denies rash, skin lesions, or other NEUROLOGIC: Denies weakness, headache, numbness, change in speech, confusion, seizures, incoordination. PSYCHIATRIC: see HPI 12 point review of systems is negative except for those stated above Patient History Medical History Anxiety and depression COVID-19 Dermoid cyst Migraine headache Social History Smoking Status: Current every day smoker Smoking Status: Current every day smoker tobacco type: vaping Substance Use Type: marijuana Exam Narrative Exam Narrative: GENERAL: 30 [] year old patient appears stated age. Well-developed patient, in mild distress. Tearful, visibly upset HEAD: Atraumatic. Normocephalic. EYES: Pupils equal round and reactive. Extraocular motions intact. No scleral icterus. No injection or drainage. ENT: Nose without bleeding, purulent drainage. Throat without erythema, tonsillar hypertrophy or exudate. Airway patent. NECK: Trachea midline. Non tender CARDIOVASCULAR: Regular rate and rhythm without murmurs, gallops, or rubs. RESPIRATORY: Clear to auscultation. Breath sounds equal bilaterally. No wheezes, rales, or rhonchi. GASTROINTESTINAL: Abdomen soft, non-tender, nondistended. EXTREMITIES: No edema or joint tenderness. BACK: Nontender without deformity or crepitance. No flank tenderness. NEURO: AOx3. SKIN: No rash or erythema of visible areas Initial Vital Signs Initial Vital Signs: Vital Signs Temperature 96.8 F L 09/14/21 16:55 Pulse Rate 90 09/14/21 16:55 Respiratory Rate 20 09/14/21 16:55 Blood Pressure 148/105 H 09/14/21 16:55 Pulse Oximetry 100 09/14/21 16:55 Course Orders Ordered: ED Orders 09/14/21 17:42 Urine Drug Screen, Rapid Stat 09/14/21 17:52 Consult to [facility] - [place]ider Stat 09/14/21 18:00 Acetaminophen Stat Complete Blood Count AUTO DIFF Stat Comprehensive Metabolic Panel Stat Ethanol (ETOH) Stat Free T4, Direct Thyroxine Stat Salicylate Stat Thyroid Stimulating Hormone Stat 09/14/21 18:40 COVID19 -Nasal swab/Pre-Proc Stat Vital Signs Vital signs: Vital Signs - 8 hr 09/14/21 16:55 09/14/21 21:21 Temperature 96.8 F L 98.6 F Pulse Rate 90 79 Respiratory Rate 20 16 Blood Pressure 148/105 H 122/79 Pulse Oximetry 100 99 MDM - Psych Lab Data Result diagrams: 09/14/21 18:00 09/14/21 18:00 Labs: Lab Results 09/14/21 09/14/21 09/14/21 Range/Units 17:42 18:00 18:00 WBC 8.5 (4.5-11.0) X10^3/uL RBC 4.59 (4.0-5.2) X10^6/uL Hgb 14.3 (12.0-16.0) g/dL Hct 41.4 (36-46) % MCV 90.1 (80-100) fL MCH 31.1 (26-34) PG MCHC 34.5 (30-36) % RDW 13.6 (11.6-14.8) % Plt Count 342 (150-400) X10^3/uL Neut % (Auto) 63.6 (50-75) % Lymph % (Auto) 30.2 (25-40) % [place] % (Auto) 5.1 (3-14) % Eos % (Auto) 0.8 L (2-4) % Baso % (Auto) 0.3 (0-2) % Neut # (Auto) 5400 (0712-7444) /uL Lymph # (Auto) 2600 (7693-4546) /uL [place] # (Auto) 400 (0-900) /uL Eos # (Auto) 100 (0-450) /uL Baso # (Auto) 0 (0-100) /uL Sodium 139 (137-145) mmol/L Potassium 3.5 (3.4-5.1) mmol/L Chloride 108 H (98-107) mmol/L Carbon Dioxide 22 (22-32) mmol/L BUN 13 (7-17) mg/dL Creatinine 0.97 (0.52-1.04) mg/dL Estimated GFR > 60.0 (>60) mL/min BUN/Creatinine Ratio 13.4 (6-22) Glucose 125 H (70-100) mg/dL Calcium 9.7 (8.4-10.2) mg/dL Total Bilirubin 0.4 (0.2-1.3) mg/dL AST 22 (14-36) IU/L ALT 21 (<35) IU/L Alkaline Phosphatase 53 (38-126) U/L Total Protein 8.2 (6.3-8.2) g/dL Albumin 4.8 (3.5-5.0) g/dL Globulin 3.4 (1.7-4.1) g/dL Albumin/Globulin Ratio 1.4 (1.0-2.8) TSH (0.47-4.68) uIU/mL Free T4 (0.78-2.19) ng/dL Salicylates < 1.0 (<20) mg/dL U Opiates 300ng/mL cut Negative (Negative) Ur Oxycodone Screen Negative (Negative) Urine Methadone Screen Negative (Negative) Acetaminophen < 10 L (10-30) ug/mL Ur Barbiturates Screen Negative (Negative) U Tricyclic Antidepress Negative (Negative) Ur Phencyclidine Scrn Negative (Negative) Ur Amphetamines Screen Negative (Negative) U Methamphetamines Scrn Negative (Negative) Ur MDMA Scrn (Ecstasy) Negative (Negative) U Benzodiazepines Scrn Negative (Negative) Urine Cocaine Screen Negative (Negative) U Marijuana (THC) Screen Positive H (Negative) Ethyl Alcohol < 10 ( - 10) mg/dL SARS-CoV-2 (PCR) (Negative) 09/14/21 09/14/21 Range/Units 18:00 18:40 WBC (4.5-11.0) X10^3/uL RBC (4.0-5.2) X10^6/uL Hgb (12.0-16.0) g/dL Hct (36-46) % MCV (80-100) fL MCH (26-34) PG MCHC (30-36) % RDW (11.6-14.8) % Plt Count (150-400) X10^3/uL Neut % (Auto) (50-75) % Lymph % (Auto) (25-40) % [place] % (Auto) (3-14) % Eos % (Auto) (2-4) % Baso % (Auto) (0-2) % Neut # (Auto) (6208-0412) /uL Lymph # (Auto) (4438-8284) /uL [place] # (Auto) (0-900) /uL Eos # (Auto) (0-450) /uL Baso # (Auto) (0-100) /uL Sodium (137-145) mmol/L Potassium (3.4-5.1) mmol/L Chloride (98-107) mmol/L Carbon Dioxide (22-32) mmol/L BUN (7-17) mg/dL Creatinine (0.52-1.04) mg/dL Estimated GFR (>60) mL/min BUN/Creatinine Ratio (6-22) Glucose (70-100) mg/dL Calcium (8.4-10.2) mg/dL Total Bilirubin (0.2-1.3) mg/dL AST (14-36) IU/L ALT (<35) IU/L Alkaline Phosphatase (38-126) U/L Total Protein (6.3-8.2) g/dL Albumin (3.5-5.0) g/dL Globulin (1.7-4.1) g/dL Albumin/Globulin Ratio (1.0-2.8) TSH 3.29 (0.47-4.68) uIU/mL Free T4 1.10 (0.78-2.19) ng/dL Salicylates (<20) mg/dL U Opiates 300ng/mL cut (Negative) Ur Oxycodone Screen (Negative) Urine Methadone Screen (Negative) Acetaminophen (10-30) ug/mL Ur Barbiturates Screen (Negative) U Tricyclic Antidepress (Negative) Ur Phencyclidine Scrn (Negative) Ur Amphetamines Screen (Negative) U Methamphetamines Scrn (Negative) Ur MDMA Scrn (Ecstasy) (Negative) U Benzodiazepines Scrn (Negative) Urine Cocaine Screen (Negative) U Marijuana (THC) Screen (Negative) Ethyl Alcohol ( - 10) mg/dL SARS-CoV-2 (PCR) Negative (Negative) Point of Care Testing Test Results Negative Urine Dip Bedside Urine Glucose Negative Bedside Urine Bilirubin - Negative Bedside Urine Ketone - Negative Urine Specific [place] 1.010 Bedside Urine Occult Blood - Negative Bedside Urine pH 6.0 Bedside Urine Protein - Negative Bedside Urine Urobilinogen - Negative Bedside Urine Nitrite - Negative Bedside Urine Leukocytes - Negative Esterase MDM Narrative Medical decision making narrative: Patient with increasing thoughts of suicidality with a plan. She wants our help and she thinks she needs hospitalization. She is voluntary. She is medically cleared. She needs and will benefit from psychiatric hospitalization. Discharge Plan Departure Patient Disposition: Xfer Psychiatric Hosp Clinical Impression: Anxiety and depression Instructions: DI for Suicidal Ideation-Adult Prescriptions: No Action omeprazole 40 mg capsule,delayed release(DR/EC) 40 mg PO DAILY 0RF topiramate 50 mg tablet 25 mg PO TID 0RF citalopram 10 mg tablet 20 mg PO QPM 0RF hydroxyzine HCl 25 mg tablet 25 mg PO QID 0RF Label Comments: patient states takes pm eletriptan 40 mg tablet 40 mg PO DAILY PRN (Reason: Migraine Headache) 0RF Label Comments: TAKE 1 TABLET BY MOUTH AT ONSET OF MIGRAINE. MAY REPEAT DOSE 1 TIME IN 2 HOURS ondansetron HCl [Zofran] 4 mg Tablet 4 mg PO Q6H PRN (Reason: Nausea) 0RF aripiprazole 2 mg Tablet 2 mg PO DAILY 0RF ketorolac 10 mg tablet 10 mg PO Q6H PRN (Reason: pain) Qty: 14 0RF metoclopramide HCl 10 mg tablet 10 mg PO Q6H PRN (Reason: nausea and vomiting) Qty: 10 0RF Referrals: Jeni Duffy DO [Primary Care Provider] -
[2021-09-14 19:13] LABS: Thyroid Stimulating Hormone 3.29 uIU/mL (0.47-4.68)
[2021-09-14 19:14] LABS: COVID19 -Nasal RAPID Negative (Negative)
--- NOTE | 2021-09-14 19:17 | CM.SWNOTE ---
PURLER Assessment Discharge Planning/Care Management PURLER/Manager Of Case Assessment Start date 09/14/21 Visit Start Time 17:10 End date 09/14/21 Visit End Time 17:35 Total time Care Management spent on 25 min patient visit-in minutes Presenting Problem Patient presents to ED via POV due to increasing SI with plans. Patient endorses SI has increased significantly since 08/27/21 and patient has thought of ways she will kill or harm self. Precipitating Event(s) Patient endorses increasing anxiety and panic attacks. Patient states she wants to go to [facility] inpatient hospital and told her therapist about this today in hopes to be supported by this plan. Patient states she called [facility] and they stated concern about patient's insurance which caused patient to have more anxiety. Patient endorses spiraling at the airport after a trip to [employer] and needing to be escorted to the plane due to manic and panic episode. Patient endorses an increase in thoughts of SI after such panic and jeyson. Patient Strengths Patient is seeking help and shows insight Current Behavioral Health Provider(s) Patient states she sees Include Facility, Provider, Ph. # Psychologist Dr. Gatica at the [facility] in [place]. (Ph. # [phone]) Psych. Hx Mental Health and Chemical Patient has hx of Anxiety and Dependency Depression and endorses SI. Patient is prescribed the following for her MH: Ariparzole 2 mg PO daily Citalopram 20 mg PO QPM Hydoxyzine HCl 25 mg PO QID Patient endorses daily THC use to cope with anxiety. Patient endorses nicotene use as well . Patient states she had Covid -19 a month ago and prior to that she would drink ETOH every day. Family Hx of Behavioral Abuse None reported Psychiatric Hospitalizations (date(s)/ No hx location) Psychosocial information & Support Patient is 30 y/o female who Systems resides with and three kids (ages 5, 8, & 10) in [place], [place]. It is reported that patient and family is from [place] and they are present in [place] due to 's active duty in the through [employer]. 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 Legal Matters - Outstanding Issues None reported Orientation (Person/Place/Time) A/Ox4 Stated Mood ok Affect (Congruent with Mood?) Anxious, full range, congruent with mood, stable Thought Content - Specify/Describe Patient endorses visual Obsessions, Delusions, Hallucinations hallucinations for the first time the other day when she saw the shadow of a person in the doorway. Patient endorses she hears talking in my head when asked if it is voices other than your own, she states I think so and states that we and they pronouns are used. Patient endorses paranoia and states that she believes that everyone is out to get her and she has not left her house for 6 months at a time. Patient states she does not feel safe anywhere but she feels safe in the hospital. Thought Processes (Iwmtenk-Npcsuxpn-Mqew Circumstantial Aoyusnyg-Ombsehko-Noclzyzqfk- Voehzoyghukkos-Lztnfzo-Ehftkwupcnix- Thought Blocking) Speech (Exyqkt-Rjgi-Gphhmrt-Rapid-Soft- Rapid/Normal Loud-Pressured) Motor (Fpqkhd-Xpmcwjuqw-Truj-Other) Normal, not formally assessed Insight (Oaou-Ydue-Hmxn/Limited) fair Judgement (Umiy-Uhgd-Mxfh/Limited) fair Impulse Control (Adequate-Impaired) adequate during assessment Memory (Uaplmxxji-Fxgvfy-Wkasyh, intact, not formally assessed Impaired-Intact) Concentration (Intact-Impaired) intact Attention (Intact-Impaired) intact Behavior (Appropriate-Inappropriate) appropriate Additional Comment Patient is calm and communicative. Suicidal Ideation (Plan) Yes Homicidal Ideation (Plan) No Comment Patient denies HI. Patient endorses significant and increasing SI on at least three occasions since 08/27/21 with plans in mind. Patient endorses plans to drive off of a bridge and crashing into other cars, finding drugs and overdosing with a needle and today had plans to slit her wrist. Patient endorses increase in SI with plans after spiraling with panic and jeyson. Patient endorses being on edge and easily triggered. Intervention PURLER enters room to meet with patient. Patient endorses concern for increasing SI and seeking voluntary inpatient hospitalization. Patient endorses thoughts of going to [facility] and slitting her wrists in front of people in efforts to get into inpatient hospital. Patient endorses concern of not being listened to by therapist and PCP in regard to her desire to go to voluntary inpatient hospital. Patient endorses significant increase in SI since 08/27/21 when she had a spiral manic and panic episode in which she had to be escorted to the plan upon her return to home. Patient provides her journal and allows PURLER to make copies of her journal to support patient's explanation of the series of events. (see attached journal entries). Patient endorses trouble sleeping, trouble keeping food down and loss of desire to care for hygiene needs. PURLER discusses voluntary inpatient hospitalization and patient indicates agreement and understanding. It is the opinion of this PURLER that patient is appropriate for and will benefit from voluntary inpatient hospitalization for crisis stabilization, medication management and safety. PURLER reviews the above with ED provider Dr. Barber who indicates agreement and understanding. RA Plan PURLER to seek voluntary inpatient beds when medically clear. ANDERS Bethea
--- NOTE | 2021-09-14 19:59 | CM.SWNOTE ---
DARK ROOM ATTENDANT Note DARK ROOM ATTENDANT calls [facility] for bed census. DARK ROOM ATTENDANT calls [facility] intake (Ph. # [phone]) and it is reported they have beds and can review patient. DARK ROOM ATTENDANT faxes clinicals for review. DARK ROOM ATTENDANT provides ED phone number to [facility]. ANDERS Bethea
[2021-09-14 21:21] VITALS: BP 122/79; PULSE 79; RESP 16; TEMP 37; O2SAT 99
== END 2021-09-15 01:05 ==
PROVIDERS: Emergency Medicine; Emergency Provider Emergency Medicine; PCP Family Medicine
DX: F32.A Depression, unspecified (principal); F41.9 Anxiety disorder, unspecified; R45.851 Suicidal ideations; Z20.822 Contact with and (suspected) exposure to COVID-19
CPT/HCPCS: 36415; 80053; 80305; 80320; 80329; 81003; 81025; 84439; 84443; 85025; 87635; 99283; 99284; C9803; G0480